=== PATIENT | female | born 1995 | race Caucasian/White ===

== ENCOUNTER 2018-06-06 08:48 | Emergency (ER) | payer MEDICAID ==
[~2018-06-06] VITALS: Ht 180.3 cm; Wt 68.0 kg
[2018-06-06 09:49] LABS: CLARITY,URINE CLOUDY (Clear); COLOR,URINE YELLOW (Yellow); GLUCOSE, URINE NEGATIVE (Neg); KETONES,URINE NEGATIVE (Neg); LEUKOCYTE ESTERASE ,URINE SMALL (Neg); NITRITES, URINE NEGATIVE (Neg); OCCULT BLOOD,URINE SMALL (Neg); PROTEIN,URINE NEGATIVE (Neg); UA COLLECTION TYPE NON-SPECIFIED; UROBILINOGEN,URINE 0.2 E.U/dL (0.2-1.0)
[2018-06-06 09:59] LABS: MUCUS STRANDS MANY /LPF (Neg); SQUAMOUS EPITHELIAL CELL,UR MANY /LPF (FEW)
[2018-06-06 10:00] LABS: BACTERIA,URINE FEW /HPF (Neg); WBC,URINE 20-30 /HPF (0-4)
[2018-06-06] MEDS ORDERED: NITR100C6 PO (10:21)
[2018-06-06] MEDS ORDERED: dexamethasone sod phosphate 10mg/ml inj PO STA (10:27)
[2018-06-06 10:48] VITALS: BP 115/63
== END 2018-06-06 10:48 | disposition home or self-care (01) ==
LOC: ER 08:49
DX: J02.9 Acute pharyngitis, unspecified (principal); N39.0 Urinary tract infection, site not specified; Z79.899 Other long term (current) drug therapy
CPT/HCPCS: 81001; 87081; 87880; 99283; J1100

== ENCOUNTER 2022-09-16 06:53 | Emergency (ER) | payer MEDICAID ==
[~2022-09-16] VITALS: Ht 177.8 cm; Wt 77.0 kg
[~2022-09-16 06:53] MED LIST: NITR100C6 PO
[2022-09-16] MEDS ORDERED: metoclopramide 5 mg/ml inj IV ONE (08:35)
[2022-09-16] MEDS ORDERED: normal saline 1000ML IV soln IV ONE (08:35)
[2022-09-16 09:38] LABS: CLARITY,URINE CLEAR (Clear); COLOR,URINE YELLOW (Yellow); GLUCOSE, URINE NEGATIVE (Neg); KETONES,URINE >=80 mg/dl (Neg); LEUKOCYTE ESTERASE ,URINE NEGATIVE (Neg); NITRITES, URINE NEGATIVE (Neg); OCCULT BLOOD,URINE NEGATIVE (Neg); PROTEIN,URINE NEGATIVE (Neg); UROBILINOGEN,URINE 0.2 E.U/dL (0.2-1.0)
[2022-09-16 09:39] LABS: BASOPHILS % (AUTO) 0.1 % (0-1); EOSINOPHILS % (AUTO) 0.1 % (0-6); HEMATOCRIT 38.5 % (35.0-45.0); HEMOGLOBIN 12.8 g/dl (12.0-16.0); LYMPHOCYTES # (AUTO) 0.4 X10'3 (1.1-4.8); LYMPHOCYTES % (AUTO) 3.2 % (21-51); MEAN CORPUSCULAR HGB CONC 33.3 g/dL (33.0-36.5); MEAN CORPUSCULAR VOLUME 84.1 FL (78-98); MEAN PLATELET VOLUME 9.1 FL (7.4-10.4); MONOCYTES # (AUTO) 0.7 X10'3 (0-0.9); MONOCYTES % (AUTO) 5.8 % (2-12); NEUTROPHILS # (AUTO) 10.6 X10'3 (1.8-7.7); NEUTROPHILS % (AUTO) 90.8 % (42-75); PLATELET COUNT 197 X10'3 (140-440); RED BLOOD COUNT 4.58 X10'6 (4.20-5.60); RED CELL DISTRIBUTION WIDTH 13.4 % (11.5-14.5); WHITE BLOOD COUNT 11.7 X10'3 (4.5-11.0)
[2022-09-16 09:40] LABS: URINE HCG NEGATIVE (NEG)
[2022-09-16 09:50] LABS: ALANINE AMINOTRANSFERASE 25 U/L (12-78); ALBUMIN 3.8 G/DL (3.4-5.0); ALBUMIN/GLOBULIN RATIO 1.3 (1.1-1.5); ALKALINE PHOSPHATASE 67 IU/L (46-116); ANION GAP 10 (8-16); ASPARTATE AMINO TRANSFERASE 21 U/L (10-37); BILIRUBIN,TOTAL 0.9 MG/DL (0.1-1.0); BLOOD UREA NITROGEN 13 MG/DL (7-18); BUN/CREATININE RATIO 17.3 (10.0-20.0); CALCIUM 8.6 MG/DL (8.5-10.1); CHLORIDE 106 MMOL/L (99-107); CREATININE 0.75 MG/DL (0.40-0.90); GLUCOSE 106 MG/DL (70-104); LIPASE 67 U/L (73-393); POTASSIUM 3.8 MMOL/L (3.5-5.1); SODIUM 139 MMOL/L (135-145); TOTAL CARBON DIOXIDE 23.5 MMOL/L (24-32); TOTAL PROTEIN 6.8 G/DL (6.4-8.2); eGFR > 90 ML/MIN
[2022-09-16 09:51] LABS: UA COLLECTION TYPE CLN CATCH MIDSTREAM
[2022-09-16] MEDS ORDERED: METO-292 PO (10:24)
[2022-09-16 10:30] VITALS: BP 109/60
== END 2022-09-16 10:34 | disposition home or self-care (01) ==
LOC: ER 06:54
DX: R11.10 Vomiting, unspecified (principal); Z79.899 Other long term (current) drug therapy; Z79.1 Long term (current) use of non-steroidal anti-inflammatories (NSAID)
CPT/HCPCS: 36415; 80053; 81003; 81025; 83690; 85025; 96374; 99283; J2765; J7030

== ENCOUNTER 2022-12-27 02:46 | Emergency (ER) | payer MEDICAID ==
[~2022-12-27] VITALS: Ht 177.8 cm; Wt 77.3 kg
[~2022-12-27 02:46] MED LIST changes: +METO-292 PO
[2022-12-27 03:42] LABS: BASOPHILS # (AUTO) 0.1 X10'3 (0-0.2); BASOPHILS % (AUTO) 0.7 % (0-1); EOSINOPHILS # (AUTO) 0.1 X10'3 (0-0.9); EOSINOPHILS % (AUTO) 1.6 % (0-6); HEMATOCRIT 34.8 % (35.0-45.0); HEMOGLOBIN 11.8 g/dl (12.0-16.0); LYMPHOCYTES # (AUTO) 2.7 X10'3 (1.1-4.8); LYMPHOCYTES % (AUTO) 30.8 % (21-51); MEAN CORPUSCULAR HEMOGLOBIN 28.3 PG (27.0-31.0); MEAN CORPUSCULAR HGB CONC 33.9 g/dL (33.0-36.5); MEAN CORPUSCULAR VOLUME 83.7 FL (78-98); MEAN PLATELET VOLUME 9.2 FL (7.4-10.4); MONOCYTES # (AUTO) 0.7 X10'3 (0-0.9); MONOCYTES % (AUTO) 8.3 % (2-12); NEUTROPHILS # (AUTO) 5.1 X10'3 (1.8-7.7); NEUTROPHILS % (AUTO) 58.6 % (42-75); PLATELET COUNT 226 X10'3 (140-440); RED BLOOD COUNT 4.16 X10'6 (4.20-5.60); RED CELL DISTRIBUTION WIDTH 14.7 % (11.5-14.5); WHITE BLOOD COUNT 8.7 X10'3 (4.5-11.0)
[2022-12-27 03:56] LABS: ALANINE AMINOTRANSFERASE 11 U/L (12-78); ALBUMIN 3.7 G/DL (3.4-5.0); ALBUMIN/GLOBULIN RATIO 1.4 (1.1-1.5); ALKALINE PHOSPHATASE 73 IU/L (46-116); ANION GAP 10 (8-16); ASPARTATE AMINO TRANSFERASE 18 U/L (10-37); BILIRUBIN,TOTAL 0.3 MG/DL (0.1-1.0); BLOOD UREA NITROGEN 8 MG/DL (7-18); BUN/CREATININE RATIO 9.2 (10.0-20.0); CALCIUM 8.7 MG/DL (8.5-10.1); CHLORIDE 107 MMOL/L (99-107); CREATININE 0.87 MG/DL (0.40-0.90); GLUCOSE 84 MG/DL (70-104); POTASSIUM 3.3 MMOL/L (3.5-5.1); SODIUM 144 MMOL/L (135-145); TOTAL CARBON DIOXIDE 26.9 MMOL/L (24-32); TOTAL PROTEIN 6.4 G/DL (6.4-8.2); eGFR 79 ML/MIN
[2022-12-27] MEDS ORDERED: potassium Cl 20 mEq SR tablet PO ONE (04:30)
[2022-12-27 04:40] VITALS: BP 113/68
== END 2022-12-27 04:43 | disposition home or self-care (01) ==
LOC: ER 02:46
DX: E87.6 Hypokalemia (principal); R00.2 Palpitations; Z79.899 Other long term (current) drug therapy
CPT/HCPCS: 36415; 71045; 80053; 83880; 84484; 85025; 93005; 99285

== ENCOUNTER 2023-01-02 14:22 | Emergency (ER) | payer MEDICAID | END 2023-01-02 15:18 | disposition left against medical advice (07) | LOC: ER 14:22 | DX: R07.89 Other chest pain (principal); Z53.21 Procedure and treatment not carried out due to patient leaving prior to being seen by health care provider ==

== ENCOUNTER 2023-09-23 03:29 | Inpatient (IN) | payer MEDICAID ==
[2023-09-23] VITALS (15 sets, daily range): BP systolic 103–120; BP diastolic 56–72; PULSE 63–99; RESP 15–21; TEMP 98.1; O2SAT 94–100
[~2023-09-23] VITALS: Ht 177.8 cm; Wt 76.3 kg
[2023-09-23] MEDS: normal saline 1000ML IV soln IVB ONE (04:54)
[2023-09-23] MEDS: ondansetron/PF 4mg/2ml inj IV ONE (04:58)
[2023-09-23] MEDS: morphine 4 MG/ML inj SYRINge IV PRN (05:01)
[2023-09-23 05:03] LABS: BASOPHILS # (AUTO) 0.1 X10'3 (0-0.2); BASOPHILS % (AUTO) 0.5 % (0-1); EOSINOPHILS % (AUTO) 0.3 % (0-6); HEMOGLOBIN 13.7 g/dl (12.0-16.0); LYMPHOCYTES # (AUTO) 1.4 X10'3 (1.1-4.8); LYMPHOCYTES % (AUTO) 13.5 % (21-51); MEAN CORPUSCULAR HEMOGLOBIN 28.6 PG (27.0-31.0); MEAN CORPUSCULAR HGB CONC 34.1 g/dL (33.0-36.5); MEAN CORPUSCULAR VOLUME 83.9 FL (78-98); MEAN PLATELET VOLUME 9.1 FL (7.4-10.4); MONOCYTES # (AUTO) 0.7 X10'3 (0-0.9); MONOCYTES % (AUTO) 6.2 % (2-12); NEUTROPHILS # (AUTO) 8.4 X10'3 (1.8-7.7); NEUTROPHILS % (AUTO) 79.5 % (42-75); PLATELET COUNT 233 X10'3 (140-440); RED BLOOD COUNT 4.77 X10'6 (4.20-5.60); RED CELL DISTRIBUTION WIDTH 14.1 % (11.5-14.5); WHITE BLOOD COUNT 10.6 X10'3 (4.5-11.0)
[2023-09-23 05:04] LABS: BILIRUBIN,URINE NEGATIVE (Neg); CLARITY,URINE CLOUDY (Clear); COLOR,URINE YELLOW (Yellow); GLUCOSE, URINE NEGATIVE (Neg); KETONES,URINE 40 mg/dl (Neg); LEUKOCYTE ESTERASE ,URINE MODERATE (Neg); NITRITES, URINE NEGATIVE (Neg); OCCULT BLOOD,URINE NEGATIVE (Neg); PH,URINE 5.5 (4.8-8.0); PROTEIN,URINE NEGATIVE (Neg); URINE HCG NEGATIVE (NEG); UROBILINOGEN,URINE 0.2 E.U/dL (0.2-1.0)
[2023-09-23 05:12] LABS: UA COLLECTION TYPE CLN CATCH MIDSTREAM
[2023-09-23 05:13] LABS: SQUAMOUS EPITHELIAL CELL,UR MANY /LPF (FEW)
[2023-09-23 05:14] LABS: BACTERIA,URINE 4+ /HPF (Neg); RBC,URINE NONE SEEN /HPF (0-2); WBC,URINE 30-50 /HPF (0-4)
[2023-09-23 05:14] LABS: ALANINE AMINOTRANSFERASE 28 U/L (12-78); ALBUMIN/GLOBULIN RATIO 1.1 (1.1-1.5); ALKALINE PHOSPHATASE 81 IU/L (46-116); ANION GAP 13 (8-16); ASPARTATE AMINO TRANSFERASE 22 U/L (10-37); BILIRUBIN,TOTAL 0.5 MG/DL (0.1-1.0); BLOOD UREA NITROGEN 12 MG/DL (7-18); BUN/CREATININE RATIO 11.8 (10.0-20.0); CALCIUM 9.1 MG/DL (8.5-10.1); CHLORIDE 103 MMOL/L (99-107); CREATININE 1.02 MG/DL (0.40-0.90); GLUCOSE 119 MG/DL (70-104); LIPASE 22 U/L (16-77); POTASSIUM 3.4 MMOL/L (3.5-5.1); SODIUM 140 MMOL/L (135-145); TOTAL PROTEIN 7.7 G/DL (6.4-8.2); eCRCL 91 ML/MIN; eGFR 66 ML/MIN
[2023-09-23] MEDS: piperacillin/tazo 4.5gm/100ml 100 ML IV ONE (06:57)
[2023-09-23] MEDS ORDERED: ondansetron/PF 4mg/2ml inj IV PRN ×2 (09:05→09:25)
[2023-09-23] MEDS ORDERED: morphine 2 MG/ML inj. syringe IV PRN ×3 (09:05→09:25)
[2023-09-23] MEDS ORDERED: magnesium 2GM in 50ml NS 50 ML IV PRN (09:05)
[2023-09-23] MEDS ORDERED: normal saline 1000ml 1,000 ML IV SCH (09:05)
[2023-09-23] MEDS ORDERED: acetaminophen 325mg tablet PO PRN (09:05)
[2023-09-23] MEDS ORDERED: magnesium 4gm in 100ml NS 100 ML IV PRN (09:05)
[2023-09-23] MEDS ORDERED: potassium Cl 20 mEq SR tablet PO PRN ×2 (09:05)
[2023-09-23] MEDS ORDERED: magnesium hydroxide 30ml (MOM) UD suspension PO PRN (09:05)
[2023-09-23] MEDS ORDERED: potassium Cl 40MEQ/1/2NS 520ml 520 ML IV PRN (09:05)
[2023-09-23] MEDS ORDERED: magnesium Cl slow-release 64mg tablet PO PRN (09:05)
[2023-09-23] MEDS ORDERED: mag hydrox/Alum hydrox/simeth 30ml oral suspension PO PRN (09:05)
[2023-09-23] MEDS ORDERED: proCHLORperazine 10 MG/2 ml inj IV PRN (09:25)
[2023-09-23] MEDS ORDERED: ringers solution, lacted 1,000 ML IV SCH (09:25)
[2023-09-23] MEDS ORDERED: meperidine/PF 25mg/ml syringe IV PRN ×2 (09:25)
[2023-09-23] MEDS ORDERED: morphine 4 MG/ML inj SYRINge IV PRN (09:25)
[2023-09-23] MEDS ORDERED: midazolam 1 mg/ML 2ml injection ONE (09:32)
[2023-09-23] MEDS ORDERED: fentaNYL/PF 50MCG/1 ML 2ML syringe ONE (09:32)
[2023-09-23] MEDS ORDERED: propofol inj 20 ML IV ONE (09:36)
[2023-09-23] MEDS ORDERED: rocuronium 10mg/ml inj IV ONE (09:36)
[2023-09-23] MEDS ORDERED: dexamethasone sod phosphate 4mg/ml inj. ONE (09:41)
[2023-09-23] MEDS ORDERED: sevoflurane 250ml liquid IH ONE (09:54)
[2023-09-23] MEDS: BUPIVAcaine/PF 2.5mg/ml (0.25%) 10ml vial IJ ONE (10:20)
[2023-09-23] MEDS ORDERED: ondansetron/PF 4mg/2ml inj ONE (10:47)
[2023-09-23] MEDS ORDERED: glycopyrrolate 0.2mg/ml inj ONE (10:48)
[2023-09-23] MEDS ORDERED: neostigmine methylsulfate 1 MG/ML 10ml vial ONE (10:48)
[2023-09-23] MEDS ORDERED: HYDROcodone/acetaminophen 5mg/325mg tablet PO PRN (11:05)
[2023-09-23] MEDS: meperidine/PF 25mg/ml syringe IV PRN (11:30)
[2023-09-23] MEDS ORDERED: metroNIDAZOLE-Flagyl 500mg/NS 100 ML IV SCH (16:00)
[2023-09-23] MEDS ORDERED: K and/or MAG REPLACEMENT MC SCH (20:00)
[2023-09-24] MEDS ORDERED: CefTRIAXone/D5W-Rocephin 1gm 50 ML IV SCH (08:00)
== END 2023-09-23 13:28 | disposition home or self-care (01) | DRG 234 ==
LOC: ER 03:29 → ED HOLD 07:13 → UNDOADMIN 07:13 → EDBEDREQ 07:47 → ORTHO 4S 08:41 → ED HOLD 08:41 → ORTHO 4S 11:43 → PACU 11:43 → ORTHO 4S 12:10 → ED HOLD 12:10 → PACU 12:10 → UNDODISIN 13:28
PROVIDERS: ADMIT Internal Medicine; ATTEND Internal Medicine
PROC: 8E0W4CZ Robotic Assisted Procedure of Trunk Region, Percutaneous Endoscopic Approach (ICD-10-PCS; 2023-09-23)
PROC: 0DTJ4ZZ Resection of Appendix, Percutaneous Endoscopic Approach (ICD-10-PCS; principal; 2023-09-23 09:54)
DX: K35.80 Unspecified acute appendicitis (principal); R82.71 Bacteriuria
CPT/HCPCS: 36415; 74176; 80053; 81001; 81025; 83690; 85025; 99285; A4215; A4618; J1100; J2175; J2250; J2270; J2405; J2543; J2704; J2710; J3010; J3490; J7030; J7120

== ENCOUNTER 2023-09-24 17:26 | Emergency (ER) | payer MEDICAID ==
[~2023-09-24] VITALS: Ht 177.8 cm; Wt 77.3 kg
[2023-09-24] MEDS: HYDROmorphone inj. 0.5 MG/0.5 ML DISP.SYRIN IV ONE (18:05)
[2023-09-24] MEDS: normal saline 1000ML IV soln IVB ONE (18:39)
[2023-09-24] MEDS ORDERED: LIDOcaine 2% 10ml TOPICAL JELLY (Urojet) TP ONE (18:50)
[2023-09-24 18:55] LABS: BASOPHILS % (AUTO) 0.2 % (0-1); EOSINOPHILS % (AUTO) 0.2 % (0-6); HEMATOCRIT 36.4 % (35.0-45.0); HEMOGLOBIN 12.2 g/dl (12.0-16.0); LYMPHOCYTES # (AUTO) 1.8 X10'3 (1.1-4.8); LYMPHOCYTES % (AUTO) 13.9 % (21-51); MEAN CORPUSCULAR HEMOGLOBIN 28.4 PG (27.0-31.0); MEAN CORPUSCULAR HGB CONC 33.5 g/dL (33.0-36.5); MEAN CORPUSCULAR VOLUME 84.9 FL (78-98); MEAN PLATELET VOLUME 8.9 FL (7.4-10.4); MONOCYTES # (AUTO) 0.9 X10'3 (0-0.9); NEUTROPHILS % (AUTO) 78.7 % (42-75); PLATELET COUNT 196 X10'3 (140-440); RED BLOOD COUNT 4.29 X10'6 (4.20-5.60); RED CELL DISTRIBUTION WIDTH 14.9 % (11.5-14.5); WHITE BLOOD COUNT 12.7 X10'3 (4.5-11.0)
[2023-09-24 19:04] LABS: ALBUMIN 3.3 G/DL (3.4-5.0); ANION GAP 11 (8-16); BLOOD UREA NITROGEN 11 MG/DL (7-18); BUN/CREATININE RATIO 13.1 (10.0-20.0); CALCIUM 8.6 MG/DL (8.5-10.1); CHLORIDE 101 MMOL/L (99-107); CREATININE 0.84 MG/DL (0.40-0.90); GLUCOSE 90 MG/DL (70-104); LIPASE 16 U/L (16-77); MAGNESIUM 2.2 MG/DL (1.5-2.4); POTASSIUM 3.5 MMOL/L (3.5-5.1); SODIUM 138 MMOL/L (135-145); TOTAL CARBON DIOXIDE 26.5 MMOL/L (24-32); eCRCL 111 ML/MIN; eGFR 83 ML/MIN
[2023-09-24] MEDS: LidoCAINE 2% Topical Jelly 11mL syringe (UROJET) TOP ONE (19:25)
[2023-09-24 19:28] LABS: BILIRUBIN,URINE NEGATIVE (Neg); CLARITY,URINE CLEAR (Clear); COLOR,URINE STRAW (Yellow); GLUCOSE, URINE NEGATIVE (Neg); KETONES,URINE 15 mg/dl (Neg); LEUKOCYTE ESTERASE ,URINE NEGATIVE (Neg); NITRITES, URINE NEGATIVE (Neg); OCCULT BLOOD,URINE NEGATIVE (Neg); PROTEIN,URINE NEGATIVE (Neg); UROBILINOGEN,URINE 0.2 E.U/dL (0.2-1.0)
[2023-09-24 19:33] LABS: UA COLLECTION TYPE FOLEY CATH
[2023-09-24] MEDS ORDERED: ketorolac trometh. 30mg/ml inj. IV ONE (19:55)
[2023-09-24] MEDS: ketorolac tromethamine 15mg/ml inj. IV ONE (20:00)
[2023-09-24 21:43] VITALS: BP 110/70; PULSE 87; RESP 18; TEMP 98.7; O2SAT 99
== END 2023-09-24 21:46 | disposition home or self-care (01) ==
LOC: ER 17:27
DX: R33.9 Retention of urine, unspecified (principal); R10.84 Generalized abdominal pain; Z90.49 Acquired absence of other specified parts of digestive tract; Z79.899 Other long term (current) drug therapy
CPT/HCPCS: 36415; 51702; 74019; 80048; 81003; 83690; 83735; 85025; 96361; 96374; 99284; J1885; J7030; A4314; A4358; A5200

== ENCOUNTER 2025-01-23 16:54 | Emergency (ER) | payer MEDICAID ==
[~2025-01-23] VITALS: Ht 172.7 cm; Wt 69.4 kg
[2025-01-23 17:31] VITALS: TEMP 97.9
[2025-01-23 17:47] VITALS: BP 122/53; PULSE 75; RESP 16; O2SAT 98
--- NOTE | 2025-01-23 17:51 | Physician Documentation ---
History of Present Illness ~ Chief Complaint: Diarrhea Stated Complaint: POST PARDOM COMP Time Seen by MD: 17:45 Primary Medical Doctor: shai rodriguez [facility] HPI This is a 89-year-old female that presents to the emergency department for evaluation of diarrhea times 4-5 days. Patient reports that her diarrhea seems to be resolving as it is changed from liquid to just soft stool. Reports that this morning when she was wiping she noticed a small smear of blood on the toilet paper, she feels like she has had hemorrhoids over the last couple of months since her and delivery. Denies any other episodes of blood since that time. Patient reports headache took Tylenol yesterday the Tylenol helped and she was able to fall asleep. Patient reports and she is 3 weeks and is currently breast-feeding her and reports that she would like to go as soon as possible so that she can go home and feed her baby. Medication Reconciliation Allergies: Coded Allergies: No Known Allergies (Unverified , 01/23/25) Scheduled Nitrofurantoin Monohyd/M-Cryst (Macrobid 100 mg Capsule), 1 CAP PO Q12H Scheduled PRN Metoclopramide HCl (Reglan), 1 TAB PO Q6H PRN for nausea/vomiting Past Medical History Past Medical History: No Pertinent History Past Surgical History: appendectomy Alcohol Use: None Drug Use: none Lives with: Family Lives In: Home Occupation: employed Review of Systems ROS As stated above in the HPI, otherwise all systems are reviewed and negative. Physical Exam Vital Signs: Temperature: 97.9, Source: Temporal, Heart Rate: 79, Respiratory Rate: 16, BP: 122/53, Pulse Oximetry: 97, Weight: 69.400 Oxygen Flow Rate: 0 Physical Exam VITALS: Reviewed and as above. GENERAL: Alert, no apparent distress. HEENT: Normocephalic, atraumatic, PERRL, EOMI, dry mucosa, no erythema RESPIRATORY: Lungs clear, normal breath sounds, no respiratory distress. CHEST: No accessory muscle use, no retractions CV: Regular rate, rhythm, no edema, no murmur, No: JVD GI: Soft, non-tender, bowels sounds present, no rebound, guarding, or rigidity BACK: No CVA tenderness, or swelling MUSCULOSKELETAL No deformities, no edema SKIN: Warm and dry, no rash NEURO: Oriented x4, No motor or sensory deficit PSYCH: Normal mood and affect, no agitation Progress Results/Orders Results/Orders Vital Signs 01/23/25 17:31 Temp 97.9 Pulse 79 Resp 16 B/P (MAP) 122/53 Pulse Ox 97 O2 Flow Rate 0 Medical Decision Making Findings Patient was evaluated in the emergency department today. Her diarrhea has improved over the last day with the use of Imodium. Discussed today continuing intermittent use of Imodium increasing her fluids stain cognitive sent for anymore blood appearing in her stools and returning if Tylenol and ibuprofen do not help her headache. Vital signs are stable. Departure Disposition: HOME / SELF CARE / HOMELESS Impression: Primary Impression: Diarrhea Condition: Stable Discharge Instructions: Diarrhea, Adult Additional Instructions: Today we saw here in the emergency department for resolving diarrhea and headache. It continues to increase your fluid intake take Imodium as needed return to the emergency department if you notice any more blood with wiping it is not associated with hemorrhoids or if your headache returns in his unrespons chaim to Tylenol and ibuprofen. Please return to the emergency department if your headache is accompanied by vision changes nausea vomiting lightheadedness or any other concerning symptoms. Follow up with her primary care provider as needed. Referrals: NO PRIMARY CARE PROVIDER (PCP) Education Educated: Patient Educated regarding: diagnosis, treatment, need for follow up CAMILO MAGAÑAP Jan 23, 2025 17:51
== END 2025-01-23 18:31 | disposition home or self-care (01) ==
LOC: ER 16:54
DX: R19.7 Diarrhea, unspecified (principal); R51.9 Headache, unspecified; Z90.49 Acquired absence of other specified parts of digestive tract; Z79.899 Other long term (current) drug therapy
CPT/HCPCS: 99282